=== PATIENT | male | born 1955 | race Caucasian/White ===

== ENCOUNTER 2016-03-21 21:28 | Emergency (ER) | payer SELFPAY ==
[~2016-03-21] VITALS: Ht 170.2 cm; Wt 70.0 kg
[2016-03-21 21:38] VITALS: BP 101/61; PULSE 101; RESP 18; TEMP 97; O2SAT 96
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
== END 2016-03-22 06:55 | disposition home or self-care (01) ==
LOC: NEPB 21:28
DX: F10.220 Alcohol dependence with intoxication, uncomplicated (principal); Z59.0 Homelessness; F17.210 Nicotine dependence, cigarettes, uncomplicated; I10 Essential (primary) hypertension
CPT/HCPCS: 99284

== ENCOUNTER → 2016-04-12 | Outpatient (CLI) | payer OTHER ==
[2016-04-12 13:34] LABS: HEMATOCRIT 45.5 % (39.0-51.0); MEAN CELL VOLUME 93.3 FL (80.0-100.0); MEAN CORPUSCULAR HEMOGLOBIN 32.1 PG (27.0-34.0); MEAN CORPUSCULAR HGB CONC 34.4 % (32.0-36.0); PLATELET COUNT 244 TH/MM3 (150-450); RED BLOOD COUNT 4.88 MIL/MM3 (4.50-5.90); RED CELL DISTRIBUTION WIDTH 14.5 % (11.6-17.2); REVIEW FLAG FINAL; WHITE BLOOD COUNT 8.1 TH/MM3 (4.0-11.0)
== END ==
LOC: CLAB 13:14
DX: Z01.812 Encounter for preprocedural laboratory examination (principal)
CPT/HCPCS: 36415; 85027

== ENCOUNTER 2017-03-20 12:30 | Emergency (ER) | payer SELFPAY ==
[~2017-03-20] VITALS: Ht 175.3 cm; Wt 81.0 kg
[2017-03-20 12:43] VITALS: BP 156/105; PULSE 88; RESP 17; TEMP 97.8; O2SAT 98
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
[2017-03-20 15:24] VITALS: BP 130/70; PULSE 95; RESP 18; O2SAT 97
== END 2017-03-20 15:38 | disposition home or self-care (01) ==
LOC: NEPD 12:30
DX: S01.81XA Laceration without foreign body of other part of head, initial encounter (principal); F10.129 Alcohol abuse with intoxication, unspecified; E78.00 Pure hypercholesterolemia, unspecified; I10 Essential (primary) hypertension; V18.4XXA Pedal cycle driver injured in noncollision transport accident in traffic accident, initial encounter
CPT/HCPCS: 12013; 70450; 72125

== ENCOUNTER 2017-03-26 14:46 | Emergency (ER) | payer SELFPAY ==
[~2017-03-26] VITALS: Ht 172.7 cm; Wt 72.7 kg
[2017-03-26 14:48] VITALS: BP 130/75; PULSE 100; RESP 18; TEMP 98.3; O2SAT 96
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
== END 2017-03-26 15:56 | disposition home or self-care (01) ==
LOC: NEPA 14:46
DX: S01.112D Laceration without foreign body of left eyelid and periocular area, subsequent encounter (principal); Z48.02 Encounter for removal of sutures; X58.XXXD Exposure to other specified factors, subsequent encounter
CPT/HCPCS: 99281

== ENCOUNTER 2017-05-05 16:50 | Emergency (ER) | payer OTHER ==
[~2017-05-05] VITALS: Ht 175.3 cm; Wt 75.0 kg
[2017-05-05 17:38] VITALS: BP 126/70; PULSE 90; RESP 14; TEMP 97.7; O2SAT 96
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
== END 2017-05-06 07:21 | disposition home or self-care (01) ==
LOC: NEDAMB 16:50 → NEPD 05-06 07:21
DX: F10.129 Alcohol abuse with intoxication, unspecified (principal); S00.81XA Abrasion of other part of head, initial encounter; F17.200 Nicotine dependence, unspecified, uncomplicated; X58.XXXA Exposure to other specified factors, initial encounter
CPT/HCPCS: 70450